=== PATIENT | male | born 1980 | race Caucasian/White ===

== ENCOUNTER 2023-03-11 09:21 | Emergency (ER) | payer OTHER ==
[~2023-03-11] VITALS: Ht 175 cm; Wt 123.0 kg
[2023-03-11 09:31] VITALS: BP 163/111
--- NOTE | 2023-03-11 09:50 | ED Headache ---
General Chief Complaint: General Problems/Pain Stated Complaint: HEAD INJ; BLURRY VISION; DIZZINESS; NAUSEA Nursing Triage Note: Patient has ambulated to ER with cc of a head injury. Patient reports that this morning about 0800 he was coughing and things "went black" and he fell hitting the back of his head. He has taken aleeve for his pain. He continues to have pain in his head, feels dizzy, his left jaw is sore, and his neck is sore. Source: patient, family Exam Limitations: no limitations History of Present Illness Date Seen by Provider: Mar 11, 2023 Time Seen by Provider: 09:40 Initial Comments This 42-year-old gentleman presents to the emergency room with concerns about a head injury. 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 Coughing became vigorous and he started to dry heave. During that process he had a syncopal episode. He fell backward and struck his head on the bumper of a vehicle. He has had some foggy mentation but is alert and oriented. He had some nausea which has now resolved. He is ambulatory and walked into the emergency room on his own power. He has a hematoma or swollen contusion of the right posterior scalp with associated abrasions. He has some minor neck discomfort. He has some pain around the left ear radiating into his left jaw. He has pain with biting down but does not feel any laxity in his teeth or pain injuries. He denies any other injuries. Patient denies any illness or symptoms prior to the incident. He is accompanied by his significant other who contributes to the history. He took Aleve after the incident. Patient does clarify that the loss of consciousness occurred prior to the fall not as a consequence of head injury. Loss of consciousness was very brief. Allergies and Home Medications Allergies Coded Allergies: No Known Drug Allergies (Unverified , 03/11/23) Patient Home Medication List Home Medication List Reviewed: Yes Review of Systems Review of Systems Constitutional: no symptoms reported Eyes: No Symptoms Reported Ears, Nose, Mouth, Throat: see HPI Respiratory: see HPI Cardiovascular: see HPI Gastrointestinal: no symptoms reported Genitourinary: no symptoms reported Musculoskeletal: see HPI Skin: see HPI Psychiatric/Neurological: See HPI Past Mirbjzn-Gdabcn-Pabyxe Hx Patient Social History Tobacco Use?: Yes Smokeless Tobacco Frequency: Current Everyday User Substance use?: No Alcohol Use?: Yes Alcohol type: Beer Alcohol Frequency: Daily (3-4 beers daily) Past Medical History Surgeries: Yes Abdominal (Hernia repair with mesh), Orthopedic (Multiple trauma injuries) Respiratory: No Cardiac: Yes Hypertension Neurological: No Genitourinary: No Gastrointestinal: No Musculoskeletal: No Endocrine: No HEENT: No Cancer: No Psychosocial: No Integumentary: No Physical Exam Vital Signs Vital Signs - First Documented 03/11/23 09:31 Temp 36.5 Pulse 63 Resp 16 B/P (MAP) 163/111 (128) Pulse Ox 98 O2 Delivery Room Air Capillary Refill : Height, Weight, BMI Height: '" Weight: lbs. oz. kg; 40.00 BMI Method: General Appearance: WD/WN, mild distress (Appears uncomfortable) HEENT: PERRL/EOMI, normal ENT inspection, TMs normal, other (Minor tenderness in the preauricular area and down along the lateral mandible on the left) Neck: normal inspection, other (Minor tenderness at the superior aspect of the posterior neck) Cardiovascular: regular rate, rhythm, no edema, no murmur Respiratory: lungs clear, normal breath sounds, no respiratory distress Gastrointestinal: normal bowel sounds, non tender, soft Extremities: normal inspection Psychiatric: alert, oriented x 3 Crainal Nerves: normal hearing, normal speech, PERRL Motor/Sensory: no motor deficit Skin: normal color, warm/dry, other (Abrasion and erythema to the right posterior scalp) Progress/Results/Core Measures Results/Orders My Orders Orders - ROGER SINHA MD Ct Head/Face/Cervical Wo (03/11/23 09:50) Vital Signs/I&O 03/11/23 09:31 Temp 36.5 Pulse 63 Resp 16 B/P (MAP) 163/111 (128) Pulse Ox 98 O2 Delivery Room Air Blood Pressure Mean: 128 Progress Progress Note : Progress Note Patient and significant other were interviewed. Patient was examined. C-collar was applied due to the neck pain and description of mechanism of injury. Primary concern for both patient and this provider is the head injury. By description of the incident, it appears he had coughing triggered by environmental air contaminants which then resulted in a likely vasovagal episode due to posttussive dry heaving. Injury was evaluated with CT head, face, and C- spine. All images were reviewed by me. By my interpretation there were no acute bony injuries or intracranial hemorrhages. The contusion and hematoma of the right posterior scalp was noted on imaging. C-collar was cleared after reviewing CT reports. Radiologist's report did not note any serious injuries. Concussion precautions were reviewed. Patient was offered treatment for pain or nausea which she declined. He is up-to-date on his tetanus immunization within the past 2 years. Diagnostic Imaging Diagonstic Imaging: CT Plain Films/CT/US/NM/MRI: facial bones, c-spine, head Comments NAME: SULLY PERALES [facility] REC#: [id number] PT STATUS: REG ER : 1980 PHYSICIAN: ROGER SINHA MD ADMIT DATE: 03/11/23/ER FS Draft Date of Exam:03/11/23 CT HEAD/FACE/CERVICAL WO PROCEDURE: CT head, face, and cervical spine without contrast. TECHNIQUE: Multiple contiguous axial images were obtained through the head, neck, and facial bones without the use of intravenous contrast. Sagittal and coronal reformations through the cervical spine and facial bones were also performed. Auto Exposure Controls were utilized during the CT exam to meet ALARA standards for radiation dose reduction. INDICATION: Dizziness with fall with head, neck and jaw pain. No prior studies are available for comparison. CT HEAD: Ventricles and sulci are within normal limits. There is no sulcal effacement or midline shift. No acute intra-axial or extra axial hemorrhage is detected. Cisterns are patent. Visualized paranasal sinuses are clear. IMPRESSION: No acute intracranial process is detected. CT cervical spine: Alignment is normal. There is multilevel degenerative disc disease with variable disc space narrowing and marginal spurring. The prevertebral tissues are within normal limits. No fractures are seen. Odontoid is intact. IMPRESSION: Cervical spondylosis. No acute bony abnormality is detected. CT face: The mandible appears intact. Zygomatic arches are intact. Maxillary sinus sarkar, nasal bones are intact. There appears to be a fracture through the medial wall of the left orbit, however, this may be chronic, as no intraorbital gas is present. There is some minimal mucosal thickening of left-sided ethmoid air cells, however. Frontal sinuses clear. Sphenoid sinuses clear. Mastoids are well aerated. Maxillary sinuses are clear. 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 No definite acute facial bone fracture is detected. Dictated on workstation # [id number] Dict: 03/11/23 1019 Trans: 03/11/23 1026 [id number] Interpreted by: ELLIE SANCHEZ MD Departure Impression Primary Impression: Concussion Qualified Codes: S06.0X0A - Concussion without loss of consciousness, initial encounter Additional Impressions: Scalp hematoma Qualified Codes: S00.03XA - Contusion of scalp, initial encounter Syncopal episodes Qualified Codes: R55 - Syncope and collapse Disposition: 01 HOME, SELF-CARE Condition: Stable Departure-Patient Inst. Decision time for Depature: 10:47 Referrals: MARGIE THRASHER MD (PCP) Primary Care Physician Patient Instructions: Concussion in Adults, HEMATOMA Add. Discharge Instructions: Observe strict cognitive rest for the remainder of today. Get plenty of rest and avoid brain stimulus. Also limit physical activities. Starting tomorrow gradually increase level of activity as symptoms allow. If any activity increases concussion symptoms, stop that activity and rest. Concussion symptoms include headache, blurry vision, confusion, nausea, irritability, dizziness, etc. Avoid any activities that would predispose you to further head injury until c oncussion symptoms have completely resolved for at least a week. If you have any worsening of symptoms, please return to the emergency room. If you are not recovering rapidly as expected, please make a follow-up appointment with your primary care provider. You may take Aleve (naproxen) up to 500 mg twice daily or ibuprofen up to 600 mg every 6 hours as needed for pain. You may add Tylenol (acetaminophen) up to 1000 mg every 6 hours as needed for additional pain relief. Icing your hematoma and other sore areas in 20-minute intervals may be helpful for reducing pain and swelling. Gentle heat on tense muscles may help them relax. Anticipate significant soreness over the next few days, especially when you wake up in the morning. Anticipate significant change in color of the skin related to breakdown of blood in your hematoma. All discharge instructions reviewed with patient and/or family. Voiced understanding. Copy Copies To 1: MARGIE THRASHER MD, JOSHUA T MD Mar 11, 2023 09:50
--- NOTE | 2023-03-11 10:27 | Diagnostic Imaging Report ---
PROCEDURE: CT head, face, and cervical spine without contrast. TECHNIQUE: Multiple contiguous axial images were obtained through the head, neck, and facial bones without the use of intravenous contrast. Sagittal and coronal reformations through the cervical spine and facial bones were also performed. Auto Exposure Controls were utilized during the CT exam to meet ALARA standards for radiation dose reduction. INDICATION: Dizziness with fall with head, neck and jaw pain. No prior studies are available for comparison. CT HEAD: Ventricles and sulci are within normal limits. There is no sulcal effacement or midline shift. No acute intra-axial or extra axial hemorrhage is detected. Cisterns are patent. Visualized paranasal sinuses are clear. IMPRESSION: No acute intracranial process is detected. CT cervical spine: Alignment is normal. There is multilevel degenerative disc disease with variable disc space narrowing and marginal spurring. The prevertebral tissues are within normal limits. No fractures are seen. Odontoid is intact. IMPRESSION: Cervical spondylosis. No acute bony abnormality is detected. CT face: The mandible appears intact. Zygomatic arches are intact. Maxillary sinus sarkar, nasal bones are intact. There appears to be a fracture through the medial wall of the left orbit, however, this may be chronic, as no intraorbital gas is present. There is some minimal mucosal thickening of left-sided ethmoid air cells, however. Frontal sinuses clear. Sphenoid sinuses clear. Mastoids are well aerated. Maxillary sinuses are clear. 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 No definite acute facial bone fracture is detected. Dictated by: Dictated on workstation # [id number]
== END 2023-03-11 10:53 | disposition home or self-care (01) ==
LOC: ER FS 09:24
DX: S06.0X1A Concussion with loss of consciousness of 30 minutes or less, initial encounter (principal); S00.03XA Contusion of scalp, initial encounter; M54.2 Cervicalgia; R55 Syncope and collapse; R68.84 Jaw pain; F17.200 Nicotine dependence, unspecified, uncomplicated; W18.30XA Fall on same level, unspecified, initial encounter; W22.09XA Striking against other stationary object, initial encounter
CPT/HCPCS: 70450; 70486; 72125

== ENCOUNTER 2023-10-16 17:50 | Emergency (ER) | payer OTHER ==
[~2023-10-16] VITALS: Ht 175 cm; Wt 118.0 kg
--- NOTE | 2023-10-16 17:57 | ED General ---
General Chief Complaint: Medical Screening Exam Stated Complaint: MEDICAL CLEARANCE Source of Information: Patient, Police Exam Limitations: No Limitations History of Present Illness Date Seen by Provider: Oct 16, 2023 Time Seen by Provider: 17:51 Initial Comments 43-year-old male with past medical history of hypertension coming in with police for medical clearance to go to [facility]. The concern is he was drinking alcohol while driving. He has no complaints at this time and walked in without difficulty. He states he has no pain anywhere, and he feels normal. Allergies and Home Medications Allergies Coded Allergies: No Known Drug Allergies (Unverified , 03/11/23) Patient Home Medication List Home Medication List Reviewed: Yes Review of Systems Review of Systems Constitutional: No fever EENTM: no symptoms reported Respiratory: no symptoms reported Cardiovascular: no symptoms reported Gastrointestinal: no symptoms reported Genitourinary: no symptoms reported Musculoskeletal: no symptoms reported Skin: no symptoms reported Psychiatric/Neurological: No Symptoms Reported Hematologic/Lymphatic: No Symptoms Reported Immunological/Allergic: no symptoms reported Past Uclxhfr-Eyvyve-Uebblb Hx Patient Social History Alcohol Use?: Yes Alcohol type: Beer Past Medical History Surgeries: Yes Abdominal, Orthopedic Respiratory: No Cardiac: Yes Hypertension Neurological: No Genitourinary: No Gastrointestinal: No Musculoskeletal: No Endocrine: No HEENT: No Cancer: No Psychosocial: No Integumentary: No Physical Exam Vital Signs Capillary Refill : Height, Weight, BMI Height: '" Weight: lbs. oz. kg; 40.00 BMI Method: General Appearance: No Apparent Distress, WD/WN Eyes: Bilateral Eye Normal Inspection HEENT: PERRL/EOMI, Normal ENT Inspection, Pharynx Normal Neck: Full Range of Motion, Normal Inspection, Non Tender, Supple Respiratory: Chest Non Tender, Lungs Clear, Normal Breath Sounds, No Accessory Muscle Use, No Respiratory Distress Cardiovascular: Regular Rate, Rhythm, No Edema, Normal Peripheral Pulses Gastrointestinal: Normal Bowel Sounds, Non Tender, Soft; No Distended, No Guarding Back: Normal Inspection, No CVA Tenderness, No Vertebral Tenderness Extremity: Normal Capillary Refill, Normal Inspection, Normal Range of Motion, Non Tender, No Calf Tenderness, No Pedal Edema Neurologic/Psychiatric: Alert, Oriented x3, No Motor/Sensory Deficits, Normal Mood/Affect Skin: Normal Color, Warm/Dry Progress/Results/Core Measures Suspected Sepsis SIRS Temperature: Pulse: Respiratory Rate: Blood Pressure / Mean: Results/Orders Vital Signs/I&O Capillary Refill : Progress Note : Progress Note 43-year-old male brought in by police before going to [facility]. He has no complaints at this time. No workup indicated. He is walking, talking, acting normally. Patient is okay to go to [facility]. His blood pressure was slightly elevated, he is stressed out, and he has not taken his nighttime medicine yet for his blood pressure. Departure Impression Primary Impression: Encounter for medical screening examination Disposition: 21 DIS/X[address]/LAW ENFORCE Condition: Stable Departure-Patient Inst. Decision time for Depature: 18:00 Referrals: MARGIE THRASHER MD (PCP) Primary Care Physician Patient Instructions: NO INSTRUCTIONS GIVEN, OUTPT MENTAL HEALTH SERVICES Add. Discharge Instructions: It is okay to take your blood pressure medicine tonight. Follow back up with your regular doctor if you have any concerns. ALEKSANDR KAMARA MD Oct 16, 2023 17:57
[2023-10-16 17:59] VITALS: BP 183/110
== END 2023-10-16 18:01 ==
LOC: EDUNIT# 17:50 → ER FS 17:51
DX: Z00.00 Encounter for general adult medical examination without abnormal findings (principal)
CPT/HCPCS: 99283